=== PATIENT | female | born 1965 | race Caucasian/White ===

== ENCOUNTER → 2020-03-17 10:51 | Outpatient (CLI) | payer MEDICARE, SELFPAY ==
--- NOTE | ~2020-03-17 | XR_ITS ---
XR sacroiliac joints min 3V DATE: 03/17/2020 11:16 INDICATION: Low back pain. Seronegative rheumatoid arthritis. TECHNIQUE: AP and bilateral oblique views COMPARISON: None FINDINGS: Normal alignment at the sacroiliac joints. No fracture, dislocation, erosive change or anky losis is evident. The joint spaces appear well preserved. IMPRESSION: Negative sacroiliac joints Reviewed, dictated and finalized at Location A. Reviewed, dictated and finalized at location B. E FACTORY SEWER IMPRESSION: Negative sacroiliac joints
== END ==
PROVIDERS: Visit Provider Internal Medicine
DX: M06.09 Rheumatoid arthritis without rheumatoid factor, multiple sites (principal)
CPT/HCPCS: 72202

== ENCOUNTER 2021-11-05 12:24 | Outpatient (CLI) | payer MEDICARE, SELFPAY ==
--- NOTE | ~2021-11-05 | XR_ITS ---
XR knee LT 3V 11/05/2021 12:54 Indication: Left knee pain Procedure: 3 views left knee Comparison: No prior studies for comparison. Findings: No fracture, subluxation or dislocation. There is anatomic alignment. No significant joint space narrowing. No joint effusion. No focal soft tissue abnormality. No foreign bodies. Impression: 1: No significant bone or joint abnormality. Reviewed, dictated and finalized at location A. Impression: 1: No significant bone or joint abnormality.
== END 2021-11-05 12:25 | disposition home or self-care (01) ==
PROVIDERS: PCP Physician Assistant; Visit Provider Physician Assistant
DX: M25.569 Pain in unspecified knee (principal)
CPT/HCPCS: 73562

== ENCOUNTER → 2021-11-05 15:50 | Outpatient (CLI) | payer MEDICARE, SELFPAY ==
--- NOTE | ~2021-11-05 | MM_ITS ---
EXAMINATION: MM screening elton BI w colleen HISTORY: Screening TECHNIQUE: Craniocaudal and mediolateral oblique 3-D tomosynthesis images were obtained and synthetic 2-D images were generated. CAD analysis was submitted and interpreted. COMPARISON: Comparison to multiple prior studies sequentially, with oldest reviewed study dated 10/17. BREAST PARENCHYMAL COMPOSITION: There are scattered areas of fibroglandular density. FINDINGS: Stable bilateral benign-appearing breast masses. There is no evidence of suspicious mass, c alcification, or architectural distortion to suggest malignancy in either breast. There has been no s uspicious interval change. IMPRESSION: 1. No mammographic evidence of malignancy. 2. Recommend routine screening mammography in one year. BI-RADS Category 2: Benign finding(s). Reviewed, dictated and finalized at location A.
== END ==
PROVIDERS: PCP Internal Medicine; Visit Provider Physician Assistant
DX: Z12.31 Encounter for screening mammogram for malignant neoplasm of breast (principal)
CPT/HCPCS: 77063; 77067

== ENCOUNTER → 2022-09-20 13:12 | Outpatient (CLI) | payer MEDICARE, SELFPAY ==
--- NOTE | ~2022-09-20 | XR_ITS ---
XR knee RT 3V 09/20/2022 13:46 Indication: Rheumatoid arthritis Procedure: 3 views right knee Comparison: No prior studies for comparison. Findings: No fracture, subluxation or dislocation. No joint effusion. No foreign bodies. Impression: 1: No acute bone or joint abnormality. Reviewed, dictated and finalized at location B. Impression: 1: No acute bone or joint abnormality.
--- NOTE | ~2022-09-20 | XR_ITS ---
XR knee LT 3V 09/20/2022 13:46 Indication: Left knee pain. Rheumatoid arthritis. Procedure: 3 views left knee Comparison: 11/05/2021 Findings: There is anatomic alignment. No fracture, subluxation or dislocation. No significant joint effusion. No erosive changes. Impression: 1: No significant bone or joint abnormality. Reviewed, dictated and finalized at location B. Impression: 1: No significant bone or joint abnormality.
== END ==
PROVIDERS: PCP Internal Medicine; Visit Provider Internal Medicine
DX: M06.09 Rheumatoid arthritis without rheumatoid factor, multiple sites (principal); M25.569 Pain in unspecified knee; M32.9 Systemic lupus erythematosus, unspecified; M45.0 Ankylosing spondylitis of multiple sites in spine; M54.50 Low back pain, unspecified
CPT/HCPCS: 73562

== ENCOUNTER → 2023-07-05 14:50 | Outpatient (CLI) | payer MEDICARE, SELFPAY ==
--- NOTE | ~2023-07-05 | MM_ITS ---
EXAMINATION: MM screening elton BI w colleen HISTORY: Screening mammogram TECHNIQUE: Craniocaudal and mediolateral oblique 3-D tomosynthesis images were obtained and synthetic 2-D images were generated. CAD analysis was submitted and interpreted. COMPARISON: 11/05/2021, 06/23/2017 bilateral screening mammogram examinations BREAST PARENCHYMAL COMPOSITION: The breasts are almost entirely fatty. FINDINGS: Stable bilateral circumscribed small breast masses. There is no evidence of suspicious mass , calcification, or architectural distortion to suggest malignancy in either breast. There has been n o suspicious interval change. IMPRESSION: 1. No mammographic evidence of malignancy. 2. Recommend routine screening mammography in one year. BI-RADS Category 2: Benign finding(s). Reviewed, dictated and finalized at location A. ERY OPERATOR
== END ==
PROVIDERS: PCP Physician Assistant; Visit Provider Physician Assistant
DX: Z12.31 Encounter for screening mammogram for malignant neoplasm of breast (principal)
CPT/HCPCS: 77063; 77067

== ENCOUNTER 2024-12-07 03:40 | Emergency (ER) | payer MEDICARE, SELFPAY ==
--- NOTE | ~2024-12-07 | US_ITS ---
US right upper quadrant INDICATION: Epigastric pain PROCEDURE: Realtime right upper abdominal ultrasound. COMPARISON: No prior studies for comparison. FINDINGS: Pancreas not adequately visualized due to bowel gas. Echotexture is increased, consistent with fatty infiltration. There is normal directional flow in the portal vein. There are gallstones. Common bile duct measures 3 mm. No sonographic Ramirez's sign. Mild right andreas l caliectasis. There is an echogenic focus in the renal collecting system measuring 6 mm, suspicious for renal stone. IMPRESSION: 1: Cholelithiasis. 2: Fatty infiltration of the liver. 3: Mild right renal caliectasis. Possible right nephrolithiasis. Reviewed, dictated and finalized at location A.
--- NOTE | 2024-12-07 03:41 | ECG_ITS ---
Test Date: 2024-12-07 03:55:21 Measurements Intervals [place] Rate: 84 P: 32 OR: 163 QRS: 9 QRSD: 98 T: 35 QT: 369 QTc: 436 Interpretive Statements SINUS RHYTHM MINIMAL Q WAVES- HIGH LATERAL LEADS BASELINE ARTIFACT- I, II, III BORDERLINE ECG No previous ECG available for comparison Electronically Signed On 12-07-2024 06:20:13 CDT by Jai Torre D.O.
--- OUTSIDE RECORDS SUMMARY | 2024-12-07 03:42 | XMS_ITS | Continuity of Care Document ---
Author Organization [facility] Address [address] [place] [address] [place] [address] Phone Care Team Providers Care Financial Service Rep Name Role Phone Geovany Wallace MD Unavailable Unavailable Procedures Procedure Date Office/outpatient Visit, [facility] Advance Directives Directive Yes / No Effective Date File Name No Information Encounters Encounter Description Practice Location Reason(s) For Visit Diagnoses Date Provider Providers Copied on Encounter Office/outpat ient Visit, [facility], [id number] [place] [address] [address], [place], [place], [id number], [place] tel:[phone] SEC [facility] No Information 3-200 7 Rodrigo Armenta. [address] [facility] [address], [place], [place], [address], [place]. tel:[phone] Referring Provider: Gabriel Price MD, [address] [address] [address], [place], [address]. tel:[phone] Family History Family Member Type Diagnosis Age At Onset No Information Payers Payer name Insurance type Covered green party ID Authoriza tion(s) [place] [id number] Social History Type Description Quantity Date Captured [...]
--- OUTSIDE RECORDS SUMMARY | 2024-12-07 03:42 | XMS_ITS | Clinical Summary ---
Author Organization [facility] Address [facility] [place] [address] Care Team Providers Care Board Layer Name Role Phone Luis Montero NP Primary Care Provider [phone] Allergies Active Allergy Reactions Criticality Noted Date Comments Penicillins Hives,Rash Low 12/03/2024 As an Adult Medications cyclobenzaprine (FLEXERIL) 10 MG tablet Take 1 tablet (10 mg total) by mouth. 08/13/2024 Active pregabalin (LYRICA) 75 MG capsule Take 1 capsule (75 mg total) by mouth 2 (two) times daily. 09/11/2024 Active traMADol (ULTRAM) 50 MG tablet Take 1 tablet (50 mg total) by mouth every 6 (six) hours as needed for Pain. 10/25/2024 Active celecoxib (CELEBREX) 200 MG capsule Take 1 capsule (200 mg total) by mouth 2 (two) times daily. Active DULoxetine (CYMBALTA) 60 MG capsule Take 1 capsule (60 mg total) by mouth daily. Active hydroxychloroqu ine (PLAQUENIL) 200 MG tablet Take by mouth 2 (two) times daily. Active methotrexate (TREXALL) 2.5 MG tablet Take 1 tablet (2.5 mg total) by mouth once a week. Takes 5 2.5mg BID weekly Active pantoprazole EC (PROTONIX) 20 MG tablet Take 2 tablets (40 mg total) by mouth daily. Active predniSONE (DELTASONE) 5 mg tablet Take 1 tablet (5 mg total) by mouth as needed. Active vitamin D2, ergocalciferol, (DRISDOL) 1.25 mg capsule Take 1 capsule (1.25 mg total) by mouth. Active folic acid (FOLVITE) 1 MG tablet Take 1 tablet (1 mg total) by mouth daily. Active adalimumab (HUMIRA) 40 MG/0.8ML injection Inject 0.8 mLs (40 mg total) into the skin once a week. Active Encounters Date Type Department Care Team Description 12/03/2024 Travel from Last 3 Months Family History Medical History Relation Comments Diabetes Father Hypertension Father Hypertension Mother Relation Status Comments Father Mother Alive Social History Tobacco Use Types Packs/Day Years Used Date Smoking Tobacco: Never Smokeless Tobacco: Never Tobacco Cessation:Counseling Given: Not Answered Alcohol Use Standard Drinks/Week Comments Yes 0 (1 standard drink = 0.6 oz pur e alcohol) occ Comments No Sex and Gender Information Value Date Recorded Sex Assigned at Female 12/06/2024 9:45 AM CDT Legal Sex Female 11:18 AM CDT Gender Identity Not on file Sexual Orientation Not on file Last Filed Vital Signs Vital Sign Reading Time Taken Comments Blood Pressure - - Pulse - - Temperature - - Respiratory Rate - - Oxygen Saturation - - Inhaled Oxygen Concentration - - Weight 172.4 kg (380 lb) 12/03/2024 4:00 PM CDT Height 162.6 cm (5' 4) 12/03/2024 4:00 PM CDT Body Mass Index 65.23 12/03/2024 4:00 PM CDT Plan of Treatment Upcoming Encounters Date Type Department Care Team (Latest Contact Info) Description 12/10/2024 12:06 PM CDT Hospital Encounter [facility] [address] [place] [address] Tunde Salas MD [address] [address] 12/10/2024 12:06 PM CDT Anesthesia Event [facility] [address] [place] [address] Kathy Veras MD [address] [address] 12/10/2024 12:06 PM CDT - 12/10/2024 12:35 PM CDT Surgery [facility] [address] [place] [phone] Tunde Salas MD [address] [facility] [address] [place] [address] CATARACT EXTRACTION PER PHACOMULSIFICATION WITH INTRAOCULAR LENS IMPLANT, RIGHT EYE Scheduled Procedures Name Priority Associated Diagnoses Date/Ti me CATARACT REMOVAL WITH IOL IMPLANT age related cataract, right eye 12/10/2024 12:06 PM CDT Health Maintenance Due Date Last Done Comments Cervical Cancer Screening Pa p Smear (Age 30 to 64) Every 3 Years 1966 Colorectal Cancer Screening Colonoscopy (10 Years) 1966 Annual Physical 1969 Hepatitis C 1984 DTaP, Tdap and Td Vaccines ( 1 - Tdap) 1985 Hepatitis B Vaccines (1 of 3 - 19+ 3-dose series) 1985 Cervical Cancer Screening Pa p with HPV Testing (Age 30 to 64) Every 5 Years 1996 Cervical Cancer Screening wi th HPV 1996 Mammogram Screening 2006 Pneumococcal Vaccine: 50+ Years (1 of 1 - PCV) 2016 Zoster Vaccines (1 of 2) 2016 COVID-19 Vaccine (3 - 2023-2 5 season) 2024 04/20/2021, 11/20/2020 Meningococcal B Vaccine Aged Out No l onger eligible based on patient's age to complete this topic Meningococcal Vaccine Aged Out No germaine lyric eligible based on patient's age to complete this topic RSV Immunizations Under 20 Months Aged Out No longer eligible b ased on patient's age to complete this topic Goals Goal Patient Goal Type Associated Problems Recent Progress Patient-Stated? Author Autogenerat ed Goal Care Plan Autogenerated Problem No Jeferson Armstrong MA Additional Health Concerns Active Problems Noted Date Diagnosed Date Autogenerated Problem 12/03/2024 Insurance AETNA Care Teams Board Layer Relationship Specialty Start Date End Date Luis Montero NP [address] [facility] [address] [place], [place] [id number] PCP - General NURSE PRACTITIONER 12/06/24
[2024-12-07 03:54] VITALS: BP 187/86; PULSE 94; RESP 20; TEMP 36.3; O2SAT 100
[2024-12-07 06:50] LABS: Hematocrit 38.5 % (37.0-47.0); Hemoglobin 12.2 g/dL (12.0-15.0); Immature Granulocyte Percent A 0.5 % (0-0.5); Lymphocytes Absolute Auto 0.95 K/mm3 (0.9-3.2); Mean Corpuscular HGB Conc 31.7 g/dl (32-36); Mean Corpuscular Hemoglobin 31.4 pg (26-34); Mean Corpuscular Volume 99.2 fl (80-100); Nucleated Red Blood Cells Absolute Auto 0.000 K/mm3 (0.0-0.012); Nucleated Red Blood Cells Perc 0.0 % (0.0-0.2); Platelet Count Result 233 k/mm3 (150-375); Red Blood Count 3.88 M/mm3 (4.2-5.4); White Blood Count 11.5 K/mm3 (4.5-10.0)
[2024-12-07 07:13] VITALS: BP 178/84; PULSE 79; RESP 18; O2SAT 99
[2024-12-07 07:23] LABS: Alanine Aminotransferase 45 U/L (6-35); Albumin Level 4.2 g/dL (3.5-5.1); Alkaline Phosphatase 91 U/L (38-126); Anion Gap 10 mmol/L (4-12); Aspartate Amino Transferase 41 U/L (14-36); Bilirubin,Total 1.0 mg/dL (0.2-1.3); Blood Urea Nitrogen 12 mg/dL (7-17); Calcium 9.9 mg/dL (8.4-10.2); Carbon Dioxide 26 mmol/L (22-30); Chloride 102 mmol/L (98-107); Estimated CRCL calculation 123 ml/min; Estimated Glomerular Filt Rate > 60; Glucose 159 mg/dL (65-110); Lipase 26 U/L (23-300); Potassium 3.8 mmol/L (3.4-5.0); Sodium 138 mmol/L (137-145); Total Protein 7.5 g/dL (6.3-8.2)
--- NOTE | 2024-12-07 07:38 | ED.ABDPAIN ---
HPI - Abdominal Pain General Chief Complaint: Abdominal Pain Stated Complaint: abd pain Time Seen by Provider: 12/07/24 07:05 History of Present Illness HPI narrative: Patient is a 59-year-old female who presents the ER with epigastric pain. Began last night. Sharp. Radiates to back. Associated with nausea. Has had the symptoms intermittently. Worse with eating and drinking. No alleviating factors. Will go away on its own. Denies fevers or chills or sweats. No chest discomfort. Mild dyspepsia. Related Data Home Medications ?Medication ?Instructions ?Recorded ?Confirmed ?Last Taken ?Type folic acid 1 mg tablet 1 mg PO DAILY 06/23/20 11/23/24 Unknown History pantoprazole 40 mg tablet,delayed 40 mg PO QAM 06/23/20 11/23/24 Unknown History release duloxetine 60 mg capsule,delayed 90 mg PO DAILY 12/28/22 11/23/24 Unknown History release hydroxychloroquine 200 mg tablet 400 mg PO DAILY 12/28/22 11/23/24 Unknown History methotrexate sodium 2.5 mg tablet 25 mg PO WEEKLY 12/28/22 11/23/24 Unknown History multivitamin (One-A-Day Essential 1 tablet PO DAILY 12/28/22 11/23/24 Unknown History tablet) tramadol 50 mg tablet 50 mg PO Q6H PRN 12/28/22 11/23/24 Unknown History prednisone 5 mg tablet 5 mg PO DAILY PRN 07/05/23 11/23/24 Unknown History adalimumab 40 mg/0.4 mL 40 mg subcut WEEKLY 01/12/24 11/23/24 Unknown History subcutaneous syringe kit (Humira(CF)) Allergies Allergy/AdvReac Type Severity Reaction Status Date / Time Penicillins Allergy Unknown Skin lesion Verified 12/07/24 03:59 Review of Systems Review of Systems: All systems reviewed & are unremarkable except as noted in HPI and below Constitutional: Constitutional: Reports no additional constitutional complaints ENT: Reports system reviewed and no additional complaints, except as documented Cardiovascular: Cardiovascular: Reports no additional cardiovascular complaints Respiratory: Respiratory: Reports no additional respiratory complaints Gastrointestinal: Gastrointestinal: Reports no additional gastrointestinal complaints [facility] Past Medical History Medical History (Updated 12/07/24 @ 08:44 by Hiro Ward MD) Cataracts, both eyes Smoking history Right elbow pain Pure hypercholesterolemia Polyosteoarthritis, unspecified Obesity, unspecified Neck pain Musculoskeletal pain Left lower quadrant pain Kidney stones Heart palpitations Fall (on) (from) other stairs and steps, sequela Essential (primary) hypertension Encounter for screening for malignant neoplasm of colon Elevated fasting glucose Cough Family History Family History (Updated 11/23/24 @ 13:30 by Zeynep Gtz Giselle) Father Family history of diabetes mellitus in first degree relative Hypertension Diabetes mellitus Kidney failure Mother Patient's mother is in good health Hypertension Family history of arthritis A-fib Sibling No problems noted. Social History Social History (Updated 11/23/24 @ 13:31 by Zeynep Gtz Giselle) Smoking packs per day: 1 Smoking cigarettes per day: 20.0 Years smoked: 20 Smoking pack-years: 20.00 Smoking status: Former smoker Tobacco type: e-cigarettes/vaping Second hand tobacco smoke exposure: No Smoking end date: 05/02/96 Alcohol intake: current Substance use: never Substance use type: does not use Do You Feel Safe in your Home?: Yes Lack of Transportation: No Lack of Food: Never True Current Housing: I Have Housing Concerned About Future Housing: No Difficulty Paying Gas/Electric Bills: No Difficulty Paying for Meds: No Currently Unemployed: No Education: High School Diploma/GED Difficulty w/ Childcare or Family Care: No Living arrangements: with family Occupation/Education: unemployed 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 HEAD: Normocephalic, atraumatic. ENT: Mucous membranes moist. CHEST: Clear to auscultation. No respiratory distress. HEART: Regular rate and rhythm. Normal peripheral pulses. ABDOMEN: Soft, epigastric tenderness with guarding, nondistended. EXTREMITIES: Normal range of motion. No edema. SKIN: Warm, dry, no rash. NEURO: Alert and oriented x3. PSYCH: Normal mood and affect. Course Course Emergency Course: Pain improved. Informed of imaging and lab results. Appropriate for discharge home. Discussed low-fat diet. Will give General surgery follow-up and provide pain and nausea medication. No bacteria in urine, lack of urinary symptoms, UTI not felt to be an issue. Vital Signs Vital signs: Vital Signs Temperature 97.4 F L 12/07/24 03:54 Pulse Rate 94 12/07/24 03:54 Respiratory Rate 20 12/07/24 03:54 Blood Pressure 187/86 H 12/07/24 03:54 Pulse Oximetry 100 12/07/24 03:54 Oxygen Delivery Room Air 12/07/24 03:54 Temperature 97.4 F L 12/07/24 03:54 Pulse Rate 79 12/07/24 07:13 Respiratory Rate 18 12/07/24 07:13 Blood Pressure 178/84 H 12/07/24 07:13 Pulse Oximetry 99 12/07/24 07:13 Oxygen Delivery Room Air 12/07/24 03:54 MDM - Abdominal Pain Lab Data 12/07/24 06:45 12/07/24 06:45 Labs: Lab Results 12/07/24 12/07/24 Range/Units 06:45 08:38 WBC 11.5 H (4.5-10.0) K/mm3 RBC 3.88 L (4.2-5.4) M/mm3 Hgb 12.2 (12.0-15.0) g/dL Hct 38.5 (37.0-47.0) % MCV 99.2 (80-100) fl MCH 31.4 (26-34) pg MCHC 31.7 L (32-36) g/dl RDW 14.1 (11.5-14.5) % Plt Count 233 (150-375) k/mm3 MPV 10.9 H (7.4-10.4) fl Immature Gran % (Auto) 0.5 (0-0.5) % Neut % (Auto) 84.9 H (45.5-73.1) % Lymph % (Auto) 8.3 L (18.3-44.2) % Hardin % (Auto) 5.8 (2.6-8.5) % Eos % (Auto) 0.2 (0-4.4) % Baso % (Auto) 0.3 (0.2-1.2) % Lymph # (Auto) 0.95 (0.9-3.2) K/mm3 [place]in # (Auto) 0.7 H (0.1-0.6) K/mm3 Eos # (Auto) 0.0 (0-0.3) K/mm3 Baso # (Auto) 0.0 (0.0-0.1) K/mm3 Abs Immat Gran (auto) 0.06 H (0.00-0.031) K/mm3 Absolute Neuts (auto) 9.8 H (1.3-6.7) K/mm3 Absolute Nucleated RBC 0.000 (0.0-0.012) K/mm3 Nucleated RBC % 0.0 (0.0-0.2) % Sodium 138 (137-145) mmol/L Potassium 3.8 (3.4-5.0) mmol/L Chloride 102 (98-107) mmol/L Carbon Dioxide 26 (22-30) mmol/L Anion Gap 10 (4-12) mmol/L BUN 12 (7-17) mg/dL Creatinine 0.69 L (0.7-1.0) mg/dL Estim Creat Clear Calc 123 ml/min Estimated GFR > 60 (59 - ) Glucose 159 H (65-110) mg/dL Calcium 9.9 (8.4-10.2) mg/dL Total Bilirubin 1.0 (0.2-1.3) mg/dL AST 41 H (14-36) U/L ALT 45 H (6-35) U/L Alkaline Phosphatase 91 (38-126) U/L Total Protein 7.5 (6.3-8.2) g/dL Albumin 4.2 (3.5-5.1) g/dL Lipase 26 (23-300) U/L Urine Color Yellow (Yellow) Urine Appearance Clear (Clear) Urine pH 7.5 (5.0-9.0) Ur Specific [place] 1.012 (1.001-1.035) Urine Protein Trace (Negative) mg/dL Urine Glucose (UA) Negative (Negative) mg/dL Urine Ketones Negative (Negative) mg/dL Ur Blood (Man) Trace (Negative) Urine Nitrate Negative (Negative) Urine Bilirubin Negative (Negative) Urine Urobilinogen 1.0 (<2.0) mg/dL Leukocyte Esterase Rfl 2+ H (Negative) KLAUS/UL Urine RBC 3-5 H (0-2) /hpf Urine WBC 6-10 H (0-3) /hpf Ur Squamous Epith Cells None seen (Few) /hpf Urine Bacteria None seen /hpf Urine Casts 0-2 Imaging Data Radiologist's impression: ITS Impressions Upper Quadrant Ultrasound 12/07/24 08:06 IMPRESSION: 1: Cholelithiasis. 2: Fatty infiltration of the liver. 3: Mild right renal caliectasis. Possible right nephrolithiasis. Discharge Plan Discharge Clinical Impression: Cholelithiasis Patient Disposition: Home Condition: Stable Instructions: Gallstones (ED), Low Fat Diet (ED) Additional Instructions: Return to the emergency department if you develop severe abdominal pain, severe nausea and vomiting to the point where you are unable to keep down fluids, if you develop chest pain or difficulty breathing, blood in your stool, dizziness or fainting, or if you develop any other new or concerning symptoms as these could be signs of more serious medical illness. Try to stay well hydrated. Patient Language: Algerian Prescriptions: New hydrocodone-acetaminophen 5-325 mg tablet 1 tablet PO Q6H PRN (Reason: pain) Qty: 10 0RF ondansetron 4 mg tablet,disintegrating 4 mg PO Q6H PRN (Reason: nausea and vomiting) Qty: 10 0RF naloxone [Narcan] 4 mg/actuation spray,non-aerosol 4 mg intranasal Q2M PRN (Reason: opioid overdose) Qty: 2 0RF Rx Instructions: spray 1 dose into ONE nostril; alternate nostrils w each dose until help arrives No Action hydrocodone-acetaminophen 5-325 mg tablet 1 tablet PO Q12H PRN (Reason: pain) Qty: 30 0RF Humira(CF) 40 mg/0.4 mL syringe kit 40 mg subcut WEEKLY ergocalciferol (vitamin D2) 1,250 mcg (50,000 unit) capsule 1,250 mcg PO WEEKLY Qty: 12 3RF pantoprazole 40 mg tablet,delayed release (DR/EC) 40 mg PO QAM folic acid 1 mg tablet 1 mg PO DAILY duloxetine 60 mg capsule,delayed release(DR/EC) 90 mg PO DAILY hydroxychloroquine 200 mg tablet 400 mg PO DAILY methotrexate sodium 2.5 mg tablet 25 mg PO WEEKLY Rx Instructions: 5 pills in the morning and 5 pills in the evening tramadol 50 mg tablet 50 mg PO Q6H PRN Rx Instructions: 50-100mg multivitamin [One-A-Day Essential] Tablet 1 tablet PO DAILY celecoxib [Celebrex] 200 mg capsule 200 mg PO BID Qty: 180 0RF prednisone 5 mg tablet 5 mg PO DAILY PRN Rx Instructions: 1-3 tablets daily for 7 days as needed for flare ups cyclobenzaprine 10 mg tablet 10 mg PO DAILY PRN (Reason: muscle spasm) Qty: 90 1RF Follow-up/Referrals: Sylvia Burgess MD [Physician] - 1 Week
[2024-12-07] MEDS: SODIUM CHLORIDE 0.9% IV 1,000 ML 999 ML IV CONT (07:50)
[2024-12-07] MEDS: ONDANSETRON INJ 4 MG/2 ML VIAL IV PUSH (07:50)
[2024-12-07] MEDS: MORPHINE SULFATE (*CRX) 4 MG/ML INJ IV PUSH (07:50)
--- OUTSIDE RECORDS SUMMARY | 2024-12-07 08:00 | XMS_ITS | Continuity of Care Document ---
Author Organization [facility] Address [address] [place] [address] [place] [address] Phone Care Team Providers Care Casing Fluid Tender Name Role Phone Geovany Wallace MD Unavailable Unavailable Procedures Procedure Date Office/outpatient Visit, [facility] Advance Directives Directive Yes / No Effective Date File Name No Information Encounters Encounter Description Practice Location Reason(s) For Visit Diagnoses Date Provider Providers Copied on Encounter Office/outpat ient Visit, [facility], [address] [place] [address] [address], [place], [place], [address], [place] tel:[phone] SEC [facility] No Information 3-[address] Rodrigo Armenta. [address] [facility] [address], [place], [place], [address], [place]. tel:[phone] Referring Provider: Gabriel Price MD, [address] [address] [address], [place], [address]. tel:[phone] Family History Family Member Type Diagnosis Age At Onset No Information Payers Payer name Insurance type Covered green party ID Authoriza tion(s) [place] MB [id number] Social History Type Description Quantity Date Captured [...]
--- OUTSIDE RECORDS SUMMARY | 2024-12-07 08:00 | XMS_ITS | Clinical Summary ---
Author Organization [facility] Address [facility] [place] [address] Care Team Providers Care Automatic Coin Machine Mechanic Name Role Phone Luis Montero NP Primary Care Provider [phone] Allergies Active Allergy Reactions Criticality Noted Date [...] Description 12/10/2024 12:06 PM CDT Hospital Encounter [facility] [address] [place] [address] Tunde Salas MD [address] [address] 12/10/2024 12:06 PM CDT Anesthesia Event [facility] [address] [place] [address] Kathy Veras MD [address] [address] 12/10/2024 12:06 PM CDT - 12/10/2024 12:35 PM CDT Surgery [facility] [address] [place] [address] Tunde Salas MD [address] [facility] [address] [place] [address] CATARACT EXTRACTION PER PHACOMULSIFICATION WITH INTRAOCULAR LENS [...] Autogenerated Problem 12/03/2024 Insurance AET[employer] Care Teams Automatic Coin Machine Mechanic Relationship Specialty Start Date End Date Luis Montero NP [address] [facility] [address] [place], [place] [id number] PCP - General NURSE PRACTITIONER 12/06/24
[2024-12-07 08:49] LABS: Add Urine Microscopic? YES; Appearance Urine Clear (Clear); Glucose Urine UA Negative (Negative); Leukocyte Esterase Ur 2+ LEU/UL (Negative); Nitrate Urine Negative (Negative); Non Pathogenic Casts 0-2; Specific Grav Ur 1.012 (1.001-1.035)
== END 2024-12-07 09:20 | disposition home or self-care (01) ==
PROVIDERS: Student in an Organized Health Care Education/Training Program; Emergency Provider Emergency Medicine; PCP Nurse Practitioner
DX: K80.20 Calculus of gallbladder without cholecystitis without obstruction (principal); E78.00 Pure hypercholesterolemia, unspecified; I10 Essential (primary) hypertension; Z87.891 Personal history of nicotine dependence; E66.9 Obesity, unspecified; Z68.44 Body mass index [BMI] 60.0-69.9, adult
CPT/HCPCS: 36415; 76705; 80053; 81001; 83690; 85025; 87086; 93005; 96361; 96374; 96375; 99284; J2270; J2405; J7030

== ENCOUNTER 2025-01-18 13:18 | Outpatient (CLI) | payer MEDICARE, SELFPAY ==
--- OUTSIDE RECORDS SUMMARY | 2007-04-03 05:22 | XMS_ITS | Continuity of Care Document ---
Author Organization [facility] Address [address] [place] [address] [place] [address] Phone Care Team Providers Care Technology Project Manager Name Role Phone Geovany Wallace MD Unavailable Unavailable Procedures Procedure Date Office/outpatient Visit, [facility] Advance Directives Directive Yes / No Effective Date File Name No Information Encounters Encounter Description Practice Location Reason(s) For Visit Diagnoses Date Provider Providers Copied on Encounter Office/outpat ient Visit, [facility], [id number] [place] [address] [address], [place], [place], [id number], [place] tel:[phone] SEC [facility] No Information 3-200 7 Rodrigo Armenta. [address] [facility] [address], [place], [place], [address], [place]. tel:[phone] Referring Provider: Gabriel Price MD, [address] [address] [address], [place], [address]. tel:[phone] Family History Family Member Type Diagnosis Age At Onset No Information Payers Payer name Insurance type Covered alliance party ID Authoriza tion(s) [place] [id number] Social History Type Description Quantity Date Captured Comments Sex Female Smoking Status No Information Chief Complaint And Reason For Visit No Information Reason For Referral Reason For Referral No Information History Of Present Illness Encounter Date Complaint History Of Prese nt Illness No Information Functional Status Date Functional Assessmen t No Information Instructions Date Instruction Additional Infor mation No Information Assessments Type Assessment Date No Information Patient Care Teams Name Effective Dates (start - stop) Status Members No Information
[2025-01-18 14:05] LABS: Amylase 42 U/L (30-110)
== END 2025-01-18 13:19 | disposition home or self-care (01) ==
PROVIDERS: PCP Nurse Practitioner; Visit Provider Surgery
DX: K80.10 Calculus of gallbladder with chronic cholecystitis without obstruction (principal); Z01.818 Encounter for other preprocedural examination
CPT/HCPCS: 36415; 82150; 86850; 86900; 86901

== ENCOUNTER 2025-01-24 00:18 | Day surgery (SDC) | payer MEDICARE, SELFPAY ==
[2025-01-15 11:03] VITALS: BMI 62.7
--- NOTE | 2025-01-15 11:13 | PC.NURSE ---
Report to the Outpatient Waiting Room, entrance under the green pavilion located off [facility], at time _0600_ on date _[id number]_. Planned Procedure Time: _0730_.? Time changes happen often and if your time is changed the preop area will call you the afternoon before. - You and your visitor will be asked to self-screen and do not enter if you have any COVID symptoms. Please call surgeon if you need to reschedule. - A mask is optional within the hospital at this time. Patients may have clear liquids (water, carbonated beverages, clear teas, apple juice) until 3 hours prior to surgery with a maximum of 20 ounces. - No food from midnight until time of surgery and no smoking, or chewing tobacco (or any form of nicotine). No chewing gum, candy or mints. Take only the following medications with a SIP of water on the morning of surgery: ___If needed may use Zofran, Hydrocodone, Tramadol and or Prednisone.____ DO NOT STOP ANY OF YOUR OTHER PRESCRIPTION MEDICATIONS PRIOR TO SURGERY EXCEPT THE FOLLOWING Hold all vitamins and supplements for 3 days per anesthesiologist. Medications to discontinue per physician Date to take last [id number]____ Please no make-up, nail turkish, hairspray, perfume, deodorant, or body powder the day of surgery.? No jewelry (including any body piercings) or valuables the day of surgery, leave them at home.? Please take a shower or bath the night before, or the morning of, surgery with an antibacterial soap.? Wear comfortable, loose fitting clothing.? - Jewelry must be removed prior to entering the operating room.? Rings and piercings that are not removed may be cut off. - The hospital will not accept responsibility for valuables.? - Please leave all valuables, including medications, at home the day of surgery. If you are going home after surgery, a licensed driver engineer must drive you home.? - NO public transportation without another adult if you receive anesthesia. - We recommend that an adult stay with you for 24 hours following discharge. - We also recommend that you do not drive, make important decision, drink alcoholic beverages, or take any drugs that were not prescribed by your health care provider for at least 24 hours after your discharge time. Follow any additional instructions given to you from your surgeon. Telephone instructions given to __Kelle__and asked if any additional questions and then verbalized understanding. Patient advised to call surgeon office or pre surgery nurse liaison [phone] if any additional questions.
[2025-01-24] VITALS (7 sets, daily range): BP systolic 115–154; BP diastolic 59–86; PULSE 69–103; RESP 14–23; TEMP 36.6–36.8; O2SAT 96–100
--- OUTSIDE RECORDS SUMMARY | 2025-01-24 00:21 | XMS_ITS | Clinical Summary ---
Author Organization [facility] Address [address] [place] [address] Care Team Providers Care Roll Forming Machine Set Up Operator Name Role Phone Luis Montero NP Primary Care Provider [phone] Allergies Active Allergy Reactions Criticality Noted Date [...] into the skin once a week. Active ketorolac (ACULAR) 0.5 % ophthalmic solution Place 1 drop into the left eye. 09/28/2024 Active prednisoLONE acetate (PRED FORTE) 1 % ophthalmic suspension Place 1 drop into the left eye. 09/29/2024 Active moxifloxacin (VIGAMOX) 0.5 % ophthalmic solution Place 1 drop into the left eye. 09/29/2024 Active HYDROcodone-remberto taminophen (NORCO) 5-325 MG tablet Take 1 tablet by mouth every 6 (six) hours as needed. 12/07/2024 Active ondansetron (ZOFRAN) 4 MG tablet Take 1 tablet (4 mg total) by mouth every 8 (eight) hours as needed for Nausea. Active Active Problems No known active problems Encounters Date Type Department Care Team Description 01/07/2025 9:48 AM CDT Anesthesia Event [facility] OR [address] [place] [id number] eDe Gandhi, Jv Snell MD 01/07/2025 9:30 AM CDT - 01/07/2025 10:00 AM CDT Surgery [facility] OR [address] [place] [id number] Tunde Salas MD CATARACT EXTRACTION PER PHACOEMULSIFICATION WITH INTRAOCULAR LENS IMPLANT, LEFT EYE 01/07/2025 8:10 AM CDT - 01/07/2025 10:30 AM CDT Hospital Encounter [facility] OR [address] [place] [id number] Tunde Salas MD Discharge Disposition: Home or Self Care (Routine Discharge) 01/07/2025 Travel 12/25/2024 Travel 12/10/2024 12:15 PM CDT - 12/10/2024 12:44 PM CDT Surgery [facility] OR [address] [place] [id number] Tunde Salas MD CATARACT EXTRACTION PER PHACOMULSIFICATION WITH INTRAOCULAR LENS IMPLANT, RIGHT EYE 12/10/2024 11:52 AM CDT Anesthesia Event [facility] [place] [address] [place] [address] Michael Pollock CRNA Portera Mankins, Sally B, MD 12/10/2024 10:38 AM CDT - 12/10/2024 12:50 PM CDT Hospital Encounter [facility] [place] [address] [place] [address] Tunde Salas MD Discharge Disposition: Home or Self Care (Routine Discharge) 12/10/2024 Travel 12/03/2024 Travel from Last 3 Months Family [...] Sign Reading Time Taken Comments Blood Pressure 133/94 01/07/2025 10:08 AM CDT Pulse 86 01/07/2025 10:08 AM CDT Temperature 36.1 C (97 F) 01/07/2025 10:08 AM CDT Respiratory Rate 18 01/07/2025 10:08 AM CDT Oxygen Saturation 100% 01/07/2025 10:08 AM CDT Inhaled Oxygen Concentration - - Weight 165.6 kg (365 lb) 01/07/2025 8:52 AM CDT Height 162.6 cm (5' 4) 01/07/2025 8:52 AM CDT Body Mass Index 62.65 01/07/2025 8:52 AM CDT Plan of Treatment Health Maintenance Due Date Last Done Comments [...] of 2) 2016 COVID-19 Vaccine (3 - 2024-2 6 season) 2024 04/20/2021, 11/20/2020 Meningococcal B Vaccine Aged Out No l onger eligible based on patient's age to complete this topic Meningococcal Vaccine Aged Out No germaine lyric eligible based on patient's age to complete this topic RSV Immunizations Under 20 Months Aged Out No longer eligible b ased on patient's age to complete this topic Medical Devices Implanted Type [employer] Device Identifier Shelf Expiration Date Model / Serial / Lot Iol Tecnis Dib00 - [id number] Implanted:Qty: 1 on 12/10/2024 by Tunde Salas MD at [facility] [employer] Lens Right: Eye [employer] [id number] 08/25/2027 [facility]00 / [id number] / Iol T[employer]nis Dib00 - [id number] Implanted:Qty: 1 on 01/07/2025 by Tunde Salas MD at [facility] [employer] Lens Left: Eye [employer] [id number] 08/08/2027 [facility]00 / [id number] / Procedures Procedure Name Priority Date/Time Associated Diagnosis Comments REMV CATARACT EXTRACAP,INSERT LENS 01/07/2025 9:48 AM CDT AGE RELATED CATARACT, LEFT EYE REMV CATARACT EXTRACAP,INSERT LENS 12/10/2024 11:50 AM CDT age related cataract, right eye from Last 3 Months Insurance [employer] Care Teams Roll Forming Machine Set Up Operator Relationship Specialty Start Date End Date Luis Montero NP [address] [facility] [address] [place], [place] [id number] PCP - General NURSE PRACTITIONER 12/06/24
[2025-01-24] MEDS: ACETAMINOPHEN 500 MG TABLET 1000 MG PO (06:25)
[2025-01-24] MEDS: LACTATED RINGERS 1,000 ML 30 ML IV CONT ×2 (06:30→09:06)
[2025-01-24] MEDS: KETOROLAC 15 MG/ML VIAL (*BKC) IV PUSH (06:30)
[2025-01-24] MEDS: INDOCYANINE GREEN 25 MG VIAL WITH DILUENT 3.75 MG IV PUSH (06:35)
--- NOTE | 2025-01-24 07:14 | PM.IMHP ---
H&P: HPI History of Present Illness Date/Time: 01/24/25 07:14 Chief Complaint: Cholecystitis, cholelithiasis Narrative: Kelle is a 60 y/o female who presents to the office for a hospital follow up for cholelithiasis. Patient presented to [facility] on 12/07/24 with abdominal pain radiating to her back. A RUQ was done which showed Cholelithiasis, Fatty infiltration of the liver, Mild right renal caliectasis. Possible right nephrolithiasis. Patient reports her symptoms have resolved since OA visit and she has not had any persistent symptoms since switching to a low fat diet. She states this was her second known episode. She is currently having normal BM's and denies nausea or vomiting. Review of Systems Review of Systems: All systems reviewed & are unremarkable except as noted in HPI and below PMFSH Past Medical History Medical History Cataracts, both eyes Smoking history Right elbow pain Pure hypercholesterolemia Polyosteoarthritis, unspecified Obesity, unspecified Neck pain Musculoskeletal pain Left lower quadrant pain Kidney stones Heart palpitations Fall (on) (from) other stairs and steps, sequela Essential (primary) hypertension Encounter for screening for malignant neoplasm of colon Elevated fasting glucose Cough Family History Family History Father Family history of diabetes mellitus in first degree relative Hypertension Diabetes mellitus Kidney failure Mother Patient's mother is in good health Hypertension Family history of arthritis A-fib Sibling No problems noted. Social History Social History Smoking packs per day: 1 Smoking cigarettes per day: 20.0 Years smoked: 15 Smoking pack-years: 15.00 Smoking status: Former smoker Tobacco type: cigarettes Second hand tobacco smoke exposure: No Smoking end date: 01/15/07 Alcohol intake: current Substance use: never Substance use type: does not use Do You Feel Safe in your Home?: Yes Lack of Transportation: No Lack of Food: Never True Current Housing: I Have Housing Concerned About Future Housing: No Difficulty Paying Gas/Electric Bills: No Difficulty Paying for Meds: No Currently Unemployed: No Education: High School Diploma/GED Difficulty w/ Childcare or Family Care: No Living arrangements: with family Occupation/Education: unemployed 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 Gender identity (if verbalized by the patient): Female Spiritual care concerns: No Meds Home Medications and Allergies Home Medications ?Medication ?Instructions ?Recorded ?Confirmed ?Type folic acid 1 mg tablet 1 mg PO DAILY 06/23/20 01/24/25 History pantoprazole 40 mg tablet,delayed 40 mg PO QAM 06/23/20 01/24/25 History release celecoxib 200 mg capsule (Celebrex) 200 mg PO BID #180 caps 12/28/22 01/24/25 Rx hydroxychloroquine 200 mg tablet 400 mg PO DAILY 12/28/22 01/24/25 History methotrexate sodium 2.5 mg tablet 25 mg PO WEEKLY 12/28/22 01/24/25 History multivitamin (One-A-Day Essential 1 tablet PO DAILY 12/28/22 01/24/25 History tablet) tramadol 50 mg tablet 50 mg PO Q6H PRN pain 12/28/22 01/15/25 History prednisone 5 mg tablet 5 mg PO DAILY PRN Lupus 07/05/23 01/15/25 History ergocalciferol (vitamin D2) 1,250 1,250 mcg PO WEEKLY #12 caps 01/12/24 01/24/25 Rx mcg (50,000 unit) capsule cyclobenzaprine 10 mg tablet 10 mg PO DAILY PRN muscle spasm 11/27/24 01/15/25 Rx #90 tabs hydrocodone 5 mg-acetaminophen 325 1 tablet PO Q6H PRN pain #10 tabs 12/07/24 01/15/25 Rx mg tablet ondansetron 4 mg disintegrating 4 mg PO Q6H PRN nausea and 12/07/24 01/15/25 Rx tablet vomiting #10 tabs Allergies Allergy/AdvReac Type Severity Reaction Status Date / Time Penicillins Allergy Unknown Skin lesion Verified 01/24/25 06:48 Vital Signs Vital Signs - 24 hr 01/24/25 06:56 Temperature 36.8 C Pulse Rate 95 Respiratory Rate 18 Blood Pressure 154/86 H Pulse Oximetry 99 Oxygen Delivery Room Air Exam Const: General: cooperative, comfortable, no acute distress and obese Resp: Auscultation: clear to auscultation bilaterally Cardio: Rate: regular rate Rhythm: regular rhythm GI: Inspection: normal to inspection and obesity GI Palp: No abdominal tenderness, Yes Soft to palpation, No Tenderness to palpation present (GI), No Guarding due to palpation present (GI) and No Rigid due to palpation Assessment and Plan Assessment and plan (1) Chronic cholecystitis with calculus: Code(s): K80.10 - Calculus of gallbladder with chronic cholecystitis without obstruction Status: Acute Assessment and Plan: set up for robotic assisted cholecystectomy
--- NOTE | 2025-01-24 07:16 | WPDHPUPDATE1 ---
History and Physical Update Update Date/Time: 01/24/25 07:16 History and Physical has been reviewed, including an updated exam of the patient. There are NO changes in the patient's condition. Risks, benefits, and alternatives have been discussed and questions answered. Patient agrees to proceed with procedure.
--- NOTE | 2025-01-24 07:25 | WPDANESEPPF ---
Anes - Initial Pre Proc Eval Procedure: Operation Date: 01/24/25 07:30 Proposed Procedures p Robotic Laparoscopic Cholecystectomy - Sylvia Burgess MD Date/Time: 01/24/25 07:25 Surgeon: Sylvia Burgess MD Pre Op Diagnosis: Chr Ccholecystitis Patient Data Age: 59 Gender: F Height: 1.63 m Weight: 164.6 kg Last Vital Signs Temp 98.3 F 01/24/25 06:56 Pulse 95 01/24/25 06:56 Resp 18 01/24/25 06:56 BP 154/86 H 01/24/25 06:56 Pulse Ox 99 01/24/25 06:56 O2 Del Method Room Air 01/24/25 06:56 Allergies Allergy/AdvReac Type Severity Reaction Status Date / Time Penicillins Allergy Unknown Skin lesion Verified 01/24/25 06:48 Home Medications ?Medication ?Instructions ?Recorded ?Confirmed ?Type folic acid 1 mg tablet 1 mg PO DAILY 06/23/20 01/24/25 History pantoprazole 40 mg tablet,delayed 40 mg PO QAM 06/23/20 01/24/25 History release celecoxib 200 mg capsule (Celebrex) 200 mg PO BID #180 caps 12/28/22 01/24/25 Rx hydroxychloroquine 200 mg tablet 400 mg PO DAILY 12/28/22 01/24/25 History methotrexate sodium 2.5 mg tablet 25 mg PO WEEKLY 12/28/22 01/24/25 History multivitamin (One-A-Day Essential 1 tablet PO DAILY 12/28/22 01/24/25 History tablet) tramadol 50 mg tablet 50 mg PO Q6H PRN pain 12/28/22 01/15/25 History prednisone 5 mg tablet 5 mg PO DAILY PRN Lupus 07/05/23 01/15/25 History ergocalciferol (vitamin D2) 1,250 1,250 mcg PO WEEKLY #12 caps 01/12/24 01/24/25 Rx mcg (50,000 unit) capsule cyclobenzaprine 10 mg tablet 10 mg PO DAILY PRN muscle spasm 11/27/24 01/15/25 Rx #90 tabs hydrocodone 5 mg-acetaminophen 325 1 tablet PO Q6H PRN pain #10 tabs 12/07/24 01/15/25 Rx mg tablet ondansetron 4 mg disintegrating 4 mg PO Q6H PRN nausea and 12/07/24 01/15/25 Rx tablet vomiting #10 tabs Patient hx anesthesia problems: none Family hx anesthesia problems: none Results Review: All pre-operative results and documents have been reviewed as part of the pre-operative evaluation. [facility] Past Medical History Medical History Cataracts, both eyes Smoking history Right elbow pain Pure hypercholesterolemia Polyosteoarthritis, unspecified Obesity, unspecified Neck pain Musculoskeletal pain Left lower quadrant pain Kidney stones Heart palpitations Fall (on) (from) other stairs and steps, sequela Essential (primary) hypertension Encounter for screening for malignant neoplasm of colon Elevated fasting glucose Cough Family History Family History Father Family history of diabetes mellitus in first degree relative Hypertension Diabetes mellitus Kidney failure Mother Patient's mother is in good health Hypertension Family history of arthritis A-fib Sibling No problems noted. Social History Social History Smoking packs per day: 1 Smoking cigarettes per day: 20.0 Years smoked: 15 Smoking pack-years: 15.00 Smoking status: Former smoker Tobacco type: cigarettes Second hand tobacco smoke exposure: No Smoking end date: 01/15/07 Alcohol intake: current Substance use: never Substance use type: does not use Do You Feel Safe in your Home?: Yes Lack of Transportation: No Lack of Food: Never True Current Housing: I Have Housing Concerned About Future Housing: No Difficulty Paying Gas/Electric Bills: No Difficulty Paying for Meds: No Currently Unemployed: No Education: High School Diploma/GED Difficulty w/ Childcare or Family Care: No Living arrangements: with family Occupation/Education: unemployed 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 Informed Consent: The patient's anesthetic plan and its attendant risks and benefits were discussed with the patient/family/POA. Questions were solicited and answers provided to the satisfaction of the patient/family/POA.
[2025-01-24] MEDS: ceFAZolin 3 GM/D5W 100 ML 100 ML IVPB (07:33)
[2025-01-24] MEDS: BUPIVACAINE/EPINEPHRINE 0.5% 50 ML VIAL 30 ML INFILTRATE (08:14)
--- NOTE | 2025-01-24 08:51 | S_PTH ---
PATIENT: Kelle Handy LOC: [facility] U#:[id number] AGE/SX: 59/F ROOM: RE01/24/[address]: Sylvia Burgess MD : 1965 BED: DIS: 01/24/2025 SPEC #: [id number] RECD: 01/24/25 10:19 STATUS: EMMA REMark #: [id number] BRAYDON: 01/24/25 08:[address]: Sylvia Burgess DEPT: [facility] Surgical RECD BY: Sol Mercer ENTERED: 01/24/25 10:20 SP TYPE: Surgical OTHR DR: Luis Montero APRN Tissues: A - Gallbladder Procedures: Hematoxylin and Eosin Stain Gross and Microscopic Level 3
--- NOTE | 2025-01-24 08:56 | W.PM.PROC2 ---
Procedure Note - Detailed Date of Procedure 01/24/25 Pre-op Diagnosis cholecystitis, cholelithiasis Post-op Diagnosis Same Procedure Performed Robotic assisted cholecystectomy Surgeon Sylvia Burgess MD Anesthesia General and Local Indications 59 y/o F c severe RUQ pain, N/V presenting to ED. Workup, including imaging, significant for cholecystitis, cholelithiasis. Findings cholecystitis, cholelithiasis Description of Procedure The patient was taken to the operating room and placed in the supine position. After adequate induction of general anesthesia, the patient was prepped and draped in the normal sterile fashion. A time-out was then done to verify the patient's identity, as well as the procedure being performed. I began by making a 8 mm incision in the periumbilical region. A Veress needle was then placed in the peritoneal cavity and CO2 gas was insufflated. After adequate pneumoperitoneum was achieved, the Veress needle was removed and a 8 mm Optiview trocar was placed under direct visualization. Once into the abdominal cavity, the introducer was removed and the laparoscope was placed through this trocar site. Under direct visualization, I placed a further 8 mm port in the left mid abdomen and 2x additional 8 mm ports in the right mid abdomen. The robot was then docked to these ports sites. I then went to the console. The gallbladder was then identified and noted to be inflamed, distended. There was a dense amount of inflammatory adhesions to the gallbladder and these were taken down with the bovie cautery. I was able to place a grasper at the dome of the gallbladder and this was retracted up and over the liver. A 2nd retractor was used to grasp the infundibulum and retracted laterally. This allowed visualization and dissection of the triangle of Calot. There were some omental adhesions to the gallbladder and these were taken down with the cautery. I then began dissection around the triangle Calot. I first identified the cystic duct, I was able to visualize the entirety of the duct from its proximal insertion into the gallbladder to its distal junction with the common hepatic/common bile duct junction. I then used the firefly visualization at this point to confirm the anatomy. The proximal cystic duct was then further skeletonized, clipped, and transected. Next I visualized the cystic artery. Again the structure was skeletonized, clipped, and transected. I then again used firefly to confirm anatomy and no aberrant anatomy was noted. I then used the Bovie cautery to take down the peritoneal attachments of the gallbladder off the liver bed. Once the gallbladder specimen was completely detached, an Endo pouch was placed through the left 8 mm port site and the gallbladder specimen was placed in the endo-pouch and subsequently removed. Of note, I made a cholecystostomy and decompressed the gallbladder to facilitate removal. I then re-examined the right upper quadrant. Hemostasis was noted in the liver bed and the clips were noted to be in good position on both the duct and the artery. No other pathology was seen in the right upper quadrant. All instruments were then removed and the robot was undocked. The abdomen was then desufflated and all ports were removed. All port sites were then closed with 4-0 Monocryl subcuticular suture. Dermabond was placed on each was wound. The patient tolerated the procedure well and was extubated in the operating room postop. The patient will now be transferred to the recovery room in stable condition. Estimated Blood Loss 10 Drains No Packing No Pathology Yes Complications No immediate complications Condition Stable Disposition PACU [facility] Billing Surgery - Charge Forward: Surgery Billing
[2025-01-24] MEDS: oxyCODONE HCL (*CRX) 5 MG TAB IR PO (10:25)
== END 2025-01-24 10:58 | disposition home or self-care (01) ==
PROVIDERS: PCP Nurse Practitioner; Visit Provider Surgery
PROC: 0FT44ZZ Resection of Gallbladder, Percutaneous Endoscopic Approach (ICD-10-PCS; CPT 47562; principal; 2025-01-24 07:30)
DX: K80.10 Calculus of gallbladder with chronic cholecystitis without obstruction (principal); K66.0 Peritoneal adhesions (postprocedural) (postinfection); I10 Essential (primary) hypertension; E78.00 Pure hypercholesterolemia, unspecified; R00.2 Palpitations; M19.90 Unspecified osteoarthritis, unspecified site; E66.01 Morbid (severe) obesity due to excess calories; Z68.44 Body mass index [BMI] 60.0-69.9, adult; Z79.1 Long term (current) use of non-steroidal anti-inflammatories (NSAID); Z79.891 Long term (current) use of opiate analgesic; Z79.52 Long term (current) use of systemic steroids; Z87.891 Personal history of nicotine dependence; Z87.442 Personal history of urinary calculi; Z82.49 Family history of ischemic heart disease and other diseases of the circulatory system
CPT/HCPCS: 47562; S2900; 88304; A9270; J0330; J0360; J0690; J1100; J1885; J2003; J2250; J2405; J2704; J3010; J7030; J7120